=== PATIENT | male | born 1960 | race Caucasian/White ===

== ENCOUNTER → 2020-12-04 02:02 | Outpatient (CLI) | payer BC, SELFPAY ==
[2020-12-04 17:39] LABS: SARS-CoV-2 RNA PCR Negative
== END ==
PROVIDERS: PCP Internal Medicine; Visit Provider Internal Medicine Gastroenterology
DX: Z01.812 Encounter for preprocedural laboratory examination (principal); Z20.822 Contact with and (suspected) exposure to COVID-19
CPT/HCPCS: C9803; U0003; U0005

== ENCOUNTER 2020-12-07 01:09 | Day surgery (SDC) | payer BC, SELFPAY ==
[2020-11-29 08:47] VITALS: BMI 25.5
--- NOTE | 2020-12-07 07:20 | PM.HPGS ---
History of Present Illness History of Present Illness Consent: Risks, benefits, and alternatives have been discussed and questions answered. Patient agrees to proceed with procedure. Chief complaint: hx of colon polyps Narrative: Khris Starks is a 60 year old male here for colon cancer screening. He has a history of polyps having a polyp removed 6 years ago Review of Systems Review of Systems: All systems reviewed & are unremarkable except as noted in HPI and below PMFSH Past Medical History Medical History Dizziness Tinnitus Family History Family History Mother Family history of anemia Family history of dementia Father Family history of lung cancer Family history of congestive heart failure Social History Social History Smoking status: Never smoker Alcohol intake: never Substance use type: does not use Living arrangements: with family Gender identity (if verbalized by the patient): Male Sexual Orientation (if Verbalized by the Patient): Straight or Heterosexual Spiritual care concerns: No Meds Home Medications and Allergies Home Medications Medication Instructions Recorded Confirmed Type multivitamin with minerals [All 1 tablet PO DAILY 11/29/20 11/29/20 History Purpose Multivitamin-Min] Allergies Allergy/AdvReac Type Severity Reaction Status Date / Time No Known Allergies Allergy Verified 11/29/20 08:42 Exam Resp: Auscultation: clear to auscultation bilaterally Cardio: Rate: regular rate Rhythm: regular rhythm GI: GI Palp: Yes Soft to palpation and No Tenderness to palpation present (GI) Assessment and Plan Assessment and plan (1) Colon cancer screening: Code(s): Z12.11 - Encounter for screening for malignant neoplasm of colon Status: Acute Assessment and Plan: Colonoscopy with possible biopsy or polypectomy or cautery or injection of substances.
[2020-12-07 12:21] VITALS: BP 109/73; RESP 18; TEMP 36.1; O2SAT 100
[2020-12-07] MEDS: LACTATED RINGERS 1,000 ML 150 ML IV CONT (12:29)
--- NOTE | 2020-12-07 12:30 | WPDANESEPPF ---
Anes - Initial Pre Proc Eval Procedure: Operation Date: 12/07/20 12:30 Proposed Procedures p Screening Colonoscopy - Cesar Villalobos MD Date/Time: 12/07/20 12:30 Surgeon: Cesar Villalobos MD Pre Op Diagnosis: hx of colon polyps Patient Data Age: 60 Gender: M Height: 1.94 m Weight: 93 kg Last Vital Signs Temp 36.1 C L 12/07/20 12:21 Resp 18 12/07/20 12:21 BP 109/73 12/07/20 12:21 Pulse Ox 100 12/07/20 12:21 Allergies Allergy/AdvReac Type Severity Reaction Status Date / Time No Known Allergies Allergy Verified 12/07/20 12:20 Home Medications Medication Instructions Recorded Confirmed Type multivitamin with minerals [All 1 tablet PO DAILY 11/29/20 11/29/20 History Purpose Multivitamin-Min] Patient hx anesthesia problems: none Family hx anesthesia problems: none PMFSH Past Medical History Medical History Dizziness Tinnitus Family History Family History Mother Family history of anemia Family history of dementia Father Family history of lung cancer Family history of congestive heart failure Social History Social History Smoking status: Never smoker Alcohol intake: never Substance use type: does not use Living arrangements: with family Gender identity (if verbalized by the patient): Male Sexual Orientation (if Verbalized by the Patient): Straight or Heterosexual Spiritual care concerns: No Anes - Eval Final PreProcedure Day of Procedure 12/07/20 12:30 Patient weight: normal Heart: regular rate and rhythm Lungs: clear to auscultation Airway: Mallampati scale class II Neurological: alert and oriented Last oral intake: >/= 8 hours ASA classification: II Emergent: no Anesthetic plan: proceed Anesthesia type and monitoring: general and standard monitoring Informed Consent: The patient's anesthetic plan and its attendant risks and benefits were discussed with the patient/family/POA. Questions were solicited and answers provided to the satisfaction of the patient/family/POA.
[2020-12-07] MEDS: SIMETHICONE ORAL SUSPENSION 20 MG/0.3 ML 30 ML BOTTLE 0.6 ML IRRIGATION (12:49)
[2020-12-07 12:58] VITALS: BP 100/93; PULSE 56; RESP 13; O2SAT 100
[2020-12-07 13:07] VITALS: BP 82/44; PULSE 65; RESP 20; O2SAT 100
[2020-12-07 13:18] VITALS: BP 101/70; PULSE 59; RESP 18; O2SAT 100
== END 2020-12-07 13:25 | disposition home or self-care (01) ==
PROVIDERS: PCP Internal Medicine; Visit Provider Internal Medicine Gastroenterology
PROC: 0DJD8ZZ Inspection of Lower Intestinal Tract, Via Natural or Artificial Opening Endoscopic (ICD-10-PCS; CPT 45378; principal; 2020-12-07 12:30)
DX: Z12.11 Encounter for screening for malignant neoplasm of colon (principal); D36.15 Benign neoplasm of peripheral nerves and autonomic nervous system of abdomen; K57.30 Diverticulosis of large intestine without perforation or abscess without bleeding
CPT/HCPCS: 45380; 88305; 88342; J2704; J7120

== ENCOUNTER 2023-09-28 08:21 | Outpatient (CLI) | payer BC, SELFPAY | END 2023-09-28 08:22 | disposition home or self-care (01) | LOC: ANHAUDASC 08:22 | PROVIDERS: PCP Family Medicine; Visit Provider Otolaryngology | DX: H90.3 Sensorineural hearing loss, bilateral (principal); H61.23 Impacted cerumen, bilateral; H93.13 Tinnitus, bilateral | CPT/HCPCS: 92557; 92567 ==

== ENCOUNTER 2024-10-19 14:00 | Emergency (ER) | payer OTHER, SELFPAY ==
[2024-10-19] VITALS (9 sets, daily range): BP systolic 110–148; BP diastolic 73–88; PULSE 56–73; RESP 10–18; TEMP 36.3; O2SAT 99–100
--- NOTE | 2024-10-19 17:28 | ECG_ITS ---
Test Date: 2024-10-19 17:44:05 Measurements Intervals [place] Rate: 58 P: 62 WI: 138 QRS: -27 QRSD: 98 T: 49 QT: 394 QTc: 389 Interpretive Statements SINUS BRADYCARDIA BORDERLINE ECG No previous ECG available for comparison Electronically Signed On 10-19-2024 18:49:04 CDT by Fidel Metcalf D.O.
--- NOTE | 2024-10-19 17:29 | ED_ITS ---
HPI - Dizziness General Chief Complaint: Dizziness Stated Complaint: fell today. states feels dizzy Time Seen by Provider: 10/19/24 17:13 History of Present Illness HPI Narrative: 64-year-old male with history of Meniere's disease and vertigo presents to the emergency department for vertigo that happened prior to arrival. Patient states he bent over to take the trash out, stood up and turned quickly and had sudden- onset spinning sensation that lasted about 10-15 seconds, causing him to lower himself to the ground. He did not hit his head or lose consciousness. He landed on his buttock. He denies any injuries from the fall including neck pain or back pain, extremity injury. Denies associated chest pain or shortness of breath, palpitations, abdominal pain, N/V/D, vision changes, focal numbness or weakness. He states after the spinning sensation resolved he had mild residual dizziness which is largely gone away at the time of my evaluation. He states he normally performs physical therapy maneuvers at [facility] to assist with his vertigo. He took meclizine years ago but currently does not take anything for vertigo. He was seeing Dr. Perera before he moved away. Related Data Home Medications ?Medication ?Instructions ?Recorded ?Confirmed ?Last Taken ?Type multivitamin with minerals 1 tablet PO DAILY 11/29/20 09/10/23 12/06/20 History Allergies Allergy/AdvReac Type Severity Reaction Status Date / Time No Known Allergies Allergy Verified 01/06/24 12:50 Review of Systems 2 Review of Systems: All systems reviewed & are unremarkable except as noted in HPI and below PMFSH Past Medical History Medical History Tinnitus Dizziness Family History Family History Mother Family history of anemia Family history of dementia Diabetes mellitus Father Family history of lung cancer Family history of congestive heart failure Lung cancer Heart disease Social History Social History Smoking status: Never smoker Alcohol intake: never Substance use type: does not use Lack of Transportation: No Lack of Food: Never True Current Housing: I Have Housing Concerned About Future Housing: No Difficulty Paying Gas/Electric Bills: No Difficulty Paying for Meds: No Currently Unemployed: No Education: Trade/Vocational Certificate Difficulty w/ Childcare or Family Care: No Living arrangements: with family Gender identity (if verbalized by the patient): Male Sexual Orientation (if Verbalized by the Patient): Straight or Heterosexual Spiritual care concerns: No Exam 2 Narrative: GENERAL: Well-appearing, well-nourished, and in no acute distress. HEAD: Normocephalic, atraumatic. EYES: PERRLA and EOMI. ENT: Nares clear, no rhinorrhea or epistaxis. Mucous membranes moist. Bilateral TMs are burris nonbulging with normal canals NECK: Supple. No carotid bruits CHEST: Clear to auscultation. No respiratory distress. HEART: Regular rate and rhythm. No murmur heard. Normal peripheral pulses. ABDOMEN: Soft, nontender, nondistended, normal active bowel sounds. EXTREMITIES: Normal range of motion. No edema. SKIN: Warm, dry, no rash. NEURO: No focal deficits. Alert and oriented x4. Cranial nerves 2-12 intact. Strength 5/5 in BUE and BLE. Sensation intact throughout. Normal [id number]. No pronator drift. Course Vital Signs Vital signs: Vital Signs Temperature 97.4 F L 10/19/24 14:04 Pulse Rate 73 10/19/24 14:04 Respiratory Rate 18 10/19/24 14:04 Blood Pressure 118/81 10/19/24 14:04 Pulse Oximetry 99 10/19/24 14:04 Oxygen Delivery Room Air 10/19/24 14:04 Temperature 97.4 F L 10/19/24 14:04 Pulse Rate 73 10/19/24 18:58 Respiratory Rate 15 10/19/24 17:04 Blood Pressure 148/88 H 10/19/24 18:58 Pulse Oximetry 100 10/19/24 17:04 Oxygen Delivery Room Air 10/19/24 14:04 MDM - Dizziness MDM Narrative Medical decision making narrative: 64-year-old male history of Meniere's disease and vertigo presents emergency department for an episode of vertigo that occurred after quickly turning his head, lasting 10-15 seconds. At the time of my evaluation patient states his vertigo is largely resolved. He is vital signs are stable. He is afebrile and nontoxic appearing. He is neurologically intact. No lateralizing deficits. No ataxia. Patient has no leukocytosis. Hemoglobin is 13.4 with normal MCV. He denies melena hematochezia. This is known to the patient. He states he was told based PCP recently that his hemoglobin was ?borderline?. Chemistries are unremarkable. EKG shows sinus bradycardia rate of 58 ppm, normal NV interval, normal QRS duration, normal QTC, no ischemic changes. Troponin is undetectable. Orthostatic vital signs do not indicate orthostatic hypotension. Patient was given IV fluids and meclizine with improvement. He is ambulatory with a steady gait and without ataxia. Presentation consistent with peripheral vertigo. He was given a prescription for meclizine and advised to follow-up with his PCP. Discussed strict ED return precautions. He is agreeable with the plan verbalized understanding. Discharged in stable condition. Lab Data 10/19/24 17:35 10/19/24 17:35 Labs: Lab Results 10/19/24 Range/Units 17:35 WBC 5.8 (4.5-10.0) K/mm3 RBC 5.21 (4.6-6.20) M/mm3 Hgb 13.4 L (14.0-18.0) g/dL Hct 43.5 (42.0-52.0) % MCV 83.5 (80-100) fl MCH 25.7 L (26-34) pg MCHC 30.8 L (32-36) g/dl RDW 12.9 (11.5-14.5) % Plt Count 215 (150-375) k/mm3 MPV 10.0 (7.4-10.4) fl Immature Gran % (Auto) 0.2 (0-0.5) % Neut % (Auto) 67.7 (45.5-73.1) % Lymph % (Auto) 21.6 (18.3-44.2) % [place] % (Auto) 7.4 (2.6-8.5) % Eos % (Auto) 2.6 (0-4.4) % Baso % (Auto) 0.5 (0.2-1.2) % Lymph # (Auto) 1.26 (0.9-3.2) K/mm3 [place] # (Auto) 0.4 (0.1-0.6) K/mm3 Eos # (Auto) 0.2 (0-0.3) K/mm3 Baso # (Auto) 0.0 (0.0-0.1) K/mm3 Abs Immat Gran (auto) 0.01 (0.00-0.031) K/mm3 Absolute Neuts (auto) 3.9 (1.3-6.7) K/mm3 Absolute Nucleated RBC 0.000 (0.0-0.012) K/mm3 Nucleated RBC % 0.0 (0.0-0.2) % Sodium 139 (137-145) mmol/L Potassium 4.3 (3.4-5.0) mmol/L Chloride 104 (98-107) mmol/L Carbon Dioxide 29 (22-30) mmol/L Anion Gap 6 (4-12) mmol/L BUN 17 (9-20) mg/dL Creatinine 0.76 (0.7-1.3) mg/dL Estim Creat Clear Calc 107 ml/min Estimated GFR > 60 (59 - ) Glucose 103 (65-110) mg/dL Calcium 9.3 (8.4-10.2) mg/dL Total Bilirubin 0.5 (0.2-1.3) mg/dL AST 35 (17-59) U/L ALT 26 (6-50) U/L Alkaline Phosphatase 58 (38-126) U/L Troponin I < 0.012 (0.000-0.034) ng/mL Total Protein 6.9 (6.3-8.2) g/dL Albumin 4.1 (3.5-5.1) g/dL Discharge Plan Discharge Clinical Impression: Vertigo Patient Disposition: Home Condition: Stable Instructions: Antibiotic Form, Vertigo (ED) Additional Instructions: You were evaluated in the emergency department for vertigo. Your presentation is consistent with vertigo as discussed. You were found to have a mildly low hemoglobin of 13.4 as discussed. Please follow-up closely with her primary care provider regarding this. Please make sure to drink plenty of fluids and take meclizine as needed. Follow-up closely with your primary care provider. Return to the emergency department if you develop vision changes, focal numbness or weakness, blood in her stool or dark tarry stools or other concerning symptoms. Patient Language: Frisian Prescriptions: New meclizine 25 mg tablet 25 mg PO BID PRN (Reason: dizziness) Qty: 14 0RF No Action terbinafine HCl [Jock Itch (terbinafine)] 1 % cream 1 applic topical BID Qty: 30 1RF multivitamin with minerals Tablet 1 tablet PO DAILY fluticasone propionate [Flonase Allergy Relief] 50 mcg/actuation spray,suspension 2 spray intranasal DAILY Qty: 48 1RF Rx Instructions: administer into each nostril cholecalciferol (vitamin D3) 1,250 mcg (50,000 unit) capsule See Rx Instructions .ROUTE .COMPLEX Qty: 12 2RF Dose Instruction: TAKE 1 CAPSULE BY MOUTH ONCE WEEKLY Rx Instructions: TAKE 1 CAPSULE BY MOUTH ONCE WEEKLY Follow-up/Referrals: Abdullahi Oconnor MD [Primary Care Provider] -
[2024-10-19 17:41] LABS: Basophils Percent Auto 0.5 % (0.2-1.2); Eosinophils Absolute Auto 0.2 K/mm3 (0-0.3); Eosinophils Percent Auto 2.6 % (0-4.4); Hematocrit 43.5 % (42.0-52.0); Hemoglobin 13.4 g/dL (14.0-18.0); Immature Granulocyte Absolute 0.01 K/mm3 (0.00-0.031); Immature Granulocyte Percent A 0.2 % (0-0.5); Lymphocytes Absolute Auto 1.26 K/mm3 (0.9-3.2); Lymphocytes Percent Auto 21.6 % (18.3-44.2); Mean Corpuscular HGB Conc 30.8 g/dl (32-36); Mean Corpuscular Hemoglobin 25.7 pg (26-34); Mean Corpuscular Volume 83.5 fl (80-100); Monocytes Absolute Auto 0.4 K/mm3 (0.1-0.6); Monocytes Percent Auto 7.4 % (2.6-8.5); Neutrophils Absolute Auto 3.9 K/mm3 (1.3-6.7); Neutrophils Percent Auto 67.7 % (45.5-73.1); Platelet Count Result 215 k/mm3 (150-375); Red Blood Count 5.21 M/mm3 (4.6-6.20); Red Cell Distribution Width 12.9 % (11.5-14.5); White Blood Count 5.8 K/mm3 (4.5-10.0)
[2024-10-19] MEDS: SODIUM CHLORIDE 0.9% IV 1,000 ML 999 ML IV CONT (17:41)
[2024-10-19] MEDS: MECLIZINE HCL 25 MG TABLET PO (17:41)
[2024-10-19 17:51] LABS: Alanine Aminotransferase 26 U/L (6-50); Albumin Level 4.1 g/dL (3.5-5.1); Alkaline Phosphatase 58 U/L (38-126); Anion Gap 6 mmol/L (4-12); Aspartate Amino Transferase 35 U/L (17-59); Bilirubin,Total 0.5 mg/dL (0.2-1.3); Blood Urea Nitrogen 17 mg/dL (9-20); Calcium 9.3 mg/dL (8.4-10.2); Carbon Dioxide 29 mmol/L (22-30); Chloride 104 mmol/L (98-107); Estimated CRCL calculation 107 ml/min; Estimated Glomerular Filt Rate > 60; Glucose 103 mg/dL (65-110); Potassium 4.3 mmol/L (3.4-5.0); Sodium 139 mmol/L (137-145); Total Protein 6.9 g/dL (6.3-8.2)
[2024-10-19 18:03] LABS: Troponin I < 0.012 ng/mL (0.000-0.034)
== END 2024-10-19 19:34 | disposition home or self-care (01) ==
PROVIDERS: Emergency Provider Physician Assistant; PCP Family Medicine
DX: H81.399 Other peripheral vertigo, unspecified ear (principal); H81.09 Meniere's disease, unspecified ear; R00.1 Bradycardia, unspecified
CPT/HCPCS: 36415; 80053; 84484; 85025; 93005; 96360; 99284; A9270; J7030

== ENCOUNTER 2024-12-30 10:56 | Emergency (ER) | payer OTHER, SELFPAY ==
[2024-12-30 11:02] VITALS: BP 127/77; PULSE 87; RESP 18; TEMP 36.4; O2SAT 99
--- NOTE | 2024-12-30 11:07 | ED.URI ---
HPI - URI/Sore Throat General Chief Complaint: Upper Respiratory Infection Stated Complaint: Sore throat Source: patient, RN notes reviewed and old records reviewed Mode of arrival: ambulatory Limitations: no limitations History of Present Illness HPI Narrative: 64-year-old male presents to the [facility] with complaints of sore throat since yesterday. Reports that he was having ?cold symptoms? over the weekend, Thursday. Patient reports on discharge that he is having some discharge, crusting and itching and redness to the right eye. Conjunctiva is red. No swelling Treatments prior to arrival: none Related Data Home Medications ?Medication ?Instructions ?Recorded ?Confirmed ?Last Taken ?Type multivitamin with minerals 1 tablet PO DAILY 11/29/20 09/10/23 12/06/20 History Allergies Allergy/AdvReac Type Severity Reaction Status Date / Time No Known Allergies Allergy Verified 12/30/24 11:01 Review of Systems Review of Systems: All systems reviewed & are unremarkable except as noted in HPI and below Constitutional: Constitutional: Reports no additional constitutional complaints ENT: Reports as per HPI and Reports sore throat Cardiovascular: Cardiovascular: Reports no additional cardiovascular complaints, Denies chest pain and Denies dyspnea Respiratory: Respiratory: Reports no additional respiratory complaints, Denies chest congestion, Denies cough and Denies dyspnea Musculoskeletal: Musculoskeletal: Reports no additional musculoskeletal complaints Integumentary/Breasts: Skin/Breast: Reports system reviewed and no additional complaints, except as docu PMFSH Past Medical History Medical History Tinnitus Dizziness Family History Family History Mother Family history of anemia Family history of dementia Diabetes mellitus Father Family history of lung cancer Family history of congestive heart failure Lung cancer Heart disease Social History Social History Smoking status: Never smoker Alcohol intake: never Substance use type: does not use Lack of Transportation: No Lack of Food: Never True Current Housing: I Have Housing Concerned About Future Housing: No Difficulty Paying Gas/Electric Bills: No Difficulty Paying for Meds: No Currently Unemployed: No Education: Trade/Vocational Certificate Difficulty w/ Childcare or Family Care: No Living arrangements: with family Gender identity (if verbalized by the patient): Male Sexual Orientation (if Verbalized by the Patient): Straight or Heterosexual Spiritual care concerns: No Comments At the time of my signature, I reviewed and agree with the nursing past medical, surgical, social, and family history. There is no relevant family history pertinent to the patient complaint. Exam Const: General: cooperative, healthy appearing, comfortable, no acute distress, well developed, alert and well nourished Nutritional Appearance: well nourished Orientation/consciousness: patient oriented x3 Limitations: no limitations HENMT: Head: normal to inspection Ears: hearing grossly normal bilaterally, external ears normal, TM's normal bilaterally, EAC's normal, mastoids normal and no periauricular adenopathy Mouth: Yes Normal oral and palatal mucosa present, Yes lip normal, Yes tongue normal and Yes moist mucous membranes Throat: posterior oropharynx normal, uvula midline and no uvular edema Eyes: General: appearance normal, both eyes and all related structures Alignment and Position: alignment normal Conjunctivae: conjunctival abnormality right conjunctival injection Neck: Neck: normal visual inspection, full ROM, no lymphadenopathy and no meningeal signs Chest: Chest palpation & inspection: normal inspection of the chest Resp: Effort & Inspection: normal respiratory effort and able to speak in complete sentences Auscultation: clear to auscultation bilaterally, no crackles, no rales, no rhonchi and no wheezes Cardio: Rate: regular rate Skin: General skin exam: normal color and no rashes or lesions noted Neuro: General: patient oriented x3, gait normal, moves all extremities and no meningeal signs Cognition (Neuro): normal cognition Speech: normal speech Gait exam (Neuro): Normal gait present Extrem: General: normal to inspection, full ROM, capillary refill normal and normal gait Psych: Appearance: grossly normal and well kempt Mental Status: mental status grossly normal Speech and movement: Normal speech and movement present and Clear speech present Affect: normal affect Attitude: cooperative Course Course Level of Care: Express Care Visit Vital Signs Vital signs: Vital Signs Temperature 97.5 F L 12/30/24 11:02 Pulse Rate 87 12/30/24 11:02 Respiratory Rate 18 12/30/24 11:02 Blood Pressure 127/77 12/30/24 11:02 Pulse Oximetry 99 12/30/24 11:02 Oxygen Delivery Room Air 12/30/24 11:02 Temperature 97.5 F L 12/30/24 11:02 Pulse Rate 87 12/30/24 11:02 Respiratory Rate 18 12/30/24 11:02 Blood Pressure 127/77 12/30/24 11:02 Pulse Oximetry 99 12/30/24 11:02 Oxygen Delivery Room Air 12/30/24 11:02 Reviewed MDM - URI/Sore Throat MDM Narrative Medical decision making narrative: Patient sitting comfortably in exam room. Patient is nontoxic, vitals stable. Patient presents with sore throat since yesterday. Had cold symptoms over the weekend. No acute findings noted on exam. Strep test is negative, will culture Patient appropriate for outpatient treatment with close follow-up Discharge instructions reviewed with patient, as well as provided in writing per nursing staff. The instructions also include specific and strict return/GO TO THE ER as well as f/u information. All questions have been answered, and the patient deny any further questions with discharge and discharge plan. Some parts of this dictation were generated by voice recognition software and may contain typographical and/or grammatical inaccuracies. Differential Diagnosis Differential diagnosis: Likely upper respiratory infection, croup, otitis media, sinusitis, viral infection, bronchitis, influenza and pharyngitis Lab Data Labs: Lab Results 12/30/24 Range/Units 11:29 POC Grp A Strep Screen Negative (Negative) Reviewed Critical Care Time Critical Care Time Critical Care Time: No Discharge Plan Discharge Clinical Impression: PND (post-nasal drip) Pharyngitis Qualifiers: Pharyngitis/tonsillitis etiology: unspecified etiology Qualified Code(s): J02.9 - Acute pharyngitis, unspecified Conjunctivitis Qualifiers: Conjunctivitis type: acute Acute conjunctivitis type: unspecified Laterality: right Qualified Code(s): H10.31 - Unspecified acute conjunctivitis, right eye Patient Disposition: Home Condition: Stable Instructions: Antibiotic Form, Viral Syndrome (ED), Conjunctivitis (ED), Postnasal Drip (DC) Additional Instructions: Your rapid strep swab was negative today at [facility]. A throat culture will be sent to the laboratory for further testing. If the test is positive, you will receive a phone call within 48 hours and an appropriate antibiotic will be initiated at that time. Your symptoms are likely due to a viral illness, which is not treated with antibiotics. Typically viral infections last 7-10 days, can linger for couple of weeks. It is very important to treat your symptoms. Drink plenty of water, Gatorade, Pedialyte, ice pops or Jell-O. -Alternate Tylenol and Motrin per package directions for fever or pain. You can alternate every 4 hours -Antihistamine medication such as Zyrtec/Claritin/Lalitha during the day can help improve symptoms. -doing daily nasal irrigations can help relieve pressure your sinuses. Things like a Neti pot -Use Flonase twice a day for 5 days then daily to help reduce the inflammation and dry up your sinuses. -You can also use Mucinex. Be sure to drink plenty of water with this medication at least 8 ounces with every dose and it is important to drink 8 to 10 glasses of water per day. Water is a natural decongestant -Eat and drink things that are easy to swallow, like tea or soup, or popsicles. -Oral rinses such as: Salt water gargles and/or may use topical anesthetic (eg. Chloraseptic spray) or lozenges to relieve dryness or throat pain). -Frequent hand washing or hand residential framing carpenter is one of the best ways to prevent spread of infection. -Using a vaporizer or humidifier at night will also help thin secretions and help with coughing up phlegm. -Follow up with primary care provider in 7-10 days if condition is not improving - For new or worsening symptoms go directly to the nearest ER Patient Language: Japanese Prescriptions: New ofloxacin 0.3 % drops See Rx Instructions EACH EYE .COMPLEX Qty: 5 0RF Rx Instructions: put 1-2 drps into affected eye(s) every 2-4 h x 2 days, then 1-2 drps 4 times/day days 3-7 No Action terbinafine HCl [Jock Itch (terbinafine)] 1 % cream 1 applic topical BID Qty: 30 1RF multivitamin with minerals Tablet 1 tablet PO DAILY meclizine 25 mg tablet 25 mg PO BID PRN (Reason: dizziness) Qty: 14 0RF fluticasone propionate [Flonase Allergy Relief] 50 mcg/actuation spray,suspension 2 spray intranasal DAILY Qty: 48 1RF Rx Instructions: administer into each nostril cholecalciferol (vitamin D3) 1,250 mcg (50,000 unit) capsule See Rx Instructions .ROUTE .COMPLEX Qty: 12 2RF Dose Instruction: TAKE 1 CAPSULE BY MOUTH ONCE WEEKLY Rx Instructions: TAKE 1 CAPSULE BY MOUTH ONCE WEEKLY Follow-up/Referrals: Abdullahi Oconnor MD [Primary Care Provider, Family Practice] - 2 Weeks Clinical Impression: PND (post-nasal drip); Pharyngitis Stand Alone Forms: Work/School Release IP Time of Disposition: 11:28
[2024-12-30 11:30] LABS: EDSTREPNEGPOS1 Negative (Negative)
== END 2024-12-30 11:31 | disposition home or self-care (01) ==
PROVIDERS: Emergency Provider Nurse Practitioner; PCP Family Medicine
DX: R09.82 Postnasal drip (principal); J02.9 Acute pharyngitis, unspecified; H10.31 Unspecified acute conjunctivitis, right eye
CPT/HCPCS: 87081; 87880; 99213; G0463